=== PATIENT | female | born 1970 | race Caucasian/White ===

== ENCOUNTER → 2019-01-25 09:28 | Outpatient (CLI) | payer OTHER, MEDICAID, SELFPAY ==
--- NOTE | 2019-01-25 | DI.US.S_ITS ---
ULTRASOUND OF LEFT BREAST: 01/25/2019 CLINICAL: Palpable left breast lump. Comparison is made to exams dated: 01/25/2019 mammogram, 11/30/2017 mammogram, 07/22/2016 ultrasound, 07/18/2016 mammogram, and 08/18/2014 mammogram - [facility]. Color flow and real-time ultrasound of the left breast were performed on the areas of interest. Blum scale images of the real-time examination were reviewed. There is a 4.1 cm x 2.4 cm x 3.2 cm irregular simple cyst in the left breast at 12 o'clock middle depth. This irregular simple cyst is anechoic. This correlates as palpated. Additionally, there is a 3.5 cm x 2.8 cm x 4.6 cm irregular simple cyst in the left breast at 3 o'clock middle depth. This irregular simple cyst is anechoic. This correlates as palpated. There is 1.8 cm x 1.3 cm x 1.8 cm oval cyst in the left breast at 12 o'clock middle depth. This oval cyst displays internal echoes. This correlates as an incidental finding. IMPRESSION: PROBABLY BENIGN The 4.1 cm x 2.4 cm x 3.2 cm irregular simple cyst in the left breast at 12 o'clock middle depth is benign. The 3.5 cm x 2.8 cm x 4.6 cm irregular simple cyst in the left breast at 3 o'clock middle depth is benign. The 1.8 cm x 1.3 cm x 1.8 cm oval cyst in the left breast at 12 o'clock middle depth is consistent with a complicated cyst and is probably benign. A follow-up ultrasound in 6 months is recommended to demonstrate stability. This exam was interpreted at Station ID: [id number]. Electronically Signed By: Liseth arceo/:01/25/2019 12:16:03 letter sent: Followup Recommended Ultrasound BI-RADS: 3 Probably benign
--- NOTE | 2019-01-25 | DI.US.S_ITS ---
ULTRASOUND OF RIGHT BREAST: 01/25/2019 CLINICAL: Palpable right breast lump. Comparison is made to exams dated: 01/25/2019 mammogram, 12/05/2017 ultrasound, 11/30/2017 mammogram, 07/22/2016 ultrasound, 07/18/2016 mammogram, and 08/18/2014 mammogram - [facility]. Color flow ultrasound of the right breast was performed on the areas of interest. Blum scale images of the real-time examination were reviewed. There is an 8 cm x 3.8 cm x 4.4 cm irregular simple cyst in the right breast at 12 o'clock anterior depth. This irregular simple cyst is anechoic with posterior acoustic enhancement. This correlates as palpated. There also is a 3.9 cm x 2.4 cm x 3.3 cm irregular simple cyst in the right breast at 10 o'clock middle depth. This irregular simple cyst is anechoic with posterior acoustic enhancement. This correlates as palpated. IMPRESSION: BENIGN There is no sonographic evidence of malignancy. The 8 cm x 3.8 cm x 4.4 cm irregular simple cyst in the right breast at 12 o'clock anterior depth is benign. The 3.9 cm x 2.4 cm x 3.3 cm irregular simple cyst in the right breast at 10 o'clock middle depth is benign. A 1 year screening mammogram is recommended. This exam was interpreted at Station ID: [id number]. Electronically Signed By: Liseth arceo/:01/25/2019 12:37:15 letter sent: Normal Exam Ultrasound BI-RADS: 2 Benign
--- NOTE | 2019-01-25 | DI.MG.S_ITS ---
BILATERAL DIGITAL DIAGNOSTIC MAMMOGRAM 3D/2D: 01/25/2019 CLINICAL: Bilateral breast masses. Comparison is made to exams dated: 11/30/2017 mammogram, 07/18/2016 mammogram, and 08/18/2014 mammogram - [facility]. The tissue of both breasts is extremely dense, which lowers the sensitivity of mammography. There are multiple round high density masses in both breasts which are similar in appearance to the comparison mammogram dated 07/18/16. Some of these correspond as palpated bilaterally. No significant masses, calcifications, or other findings are seen in either breast. IMPRESSION: INCOMPLETE: NEEDS ADDITIONAL IMAGING EVALUATION A targeted ultrasound of the bilateral breasts is recommended and will be performed immediately following this exam. This exam was interpreted at Station ID: [id number]. NOTE: For mammograms, a report in lay terms will be sent to the patient. Approximately 15% of breast malignancies will not be visualized mammographically. In the management of a palpable breast mass, a negative mammogram must not discourage biopsy of a clinically suspicious lesion. Electronically Signed By: Liseth Grimes M.D. lk/:01/25/2019 10:28:37 ACR BI-RADS Category 0: Incomplete [id number]
== END ==
PROVIDERS: Visit Provider Family Medicine
DX: R92.8 Other abnormal and inconclusive findings on diagnostic imaging of breast (principal); N60.02 Solitary cyst of left breast; N60.01 Solitary cyst of right breast
CPT/HCPCS: 76642; 77066; G0279

== ENCOUNTER → 2019-07-26 08:37 | Outpatient (CLI) | payer OTHER, MEDICAID, SELFPAY ==
--- NOTE | 2019-07-26 | DI.US.S_ITS ---
LIMITED ULTRASOUND OF LEFT BREAST: 07/26/2019 CLINICAL: 6 month follow-up of the left breast. Comparison is made to exams dated: 01/25/2019 ultrasound, 01/25/2019 mammogram, 11/30/2017 mammogram, 07/22/2016 ultrasound, 07/18/2016 mammogram, and 08/18/2014 mammogram - [facility]. Color flow and real-time ultrasound of the left breast 11-12 o'clock region were performed. Blum scale images of the real-time examination were reviewed. There is a 1.7 x 1.2 x 1.7 cm oval circumscribed heterogenously hypoechoic cyst/mass with increased through transmission/posterior acoustic enhancement, and no vascularity on Doppler ultrasound located in the left breast at 11:30 position 4 cm from the nipple. This was previously described as being at 12 o'clock position on comparison exam of 01/25/19 and measured 1.8 x 1.3 x 1.8 cm at that time. Multiple adjacent simple-appearing cysts are again demonstrated. IMPRESSION: PROBABLY BENIGN Stable 1.7 x 1.2 x 1.7 cm oval circumscribed heterogenously hypoechoic cyst/mass in the left breast at 11:30 position 4 cm from the nipple is most consistent with a complicated cyst or fibroadenoma. A follow-up ultrasound in 6 months is recommended to demonstrate continued stability and to exclude malignancy. The patient will also be due for bilateral mammography at that time. The patient is advised to monitor her breasts and to return sooner for re-evaluation should she feel anything grow or change. This exam was interpreted at Station ID: [id number]. Electronically Signed By: Lincoln Gill M.D. ecl/:07/26/2019 09:43:33 letter sent: Followup Recommended Ultrasound BI-RADS: 3 Probably benign
== END ==
PROVIDERS: PCP Family Medicine; Visit Provider Family Medicine
DX: R92.8 Other abnormal and inconclusive findings on diagnostic imaging of breast (principal); N63.22 Unspecified lump in the left breast, upper inner quadrant
CPT/HCPCS: 76642

== ENCOUNTER 2019-09-22 07:10 | Emergency (ER) | payer OTHER, MEDICAID, SELFPAY ==
[2019-09-22 07:21] VITALS: BP 133/88; PULSE 125; RESP 20; TEMP 37.3; O2SAT 93; BMI 29.7
[2019-09-22] MEDS: ALBUTEROL/IPRATROPIUM 3 ML AMPUL INH (07:27)
--- NOTE | 2019-09-22 07:31 | DI.RAD.S_ITS ---
PROCEDURE: XR CHEST 2V INDICATIONS: cough, sob TECHNIQUE: 2 views of the chest were acquired. COMPARISON: None. FINDINGS: Surgical changes and devices: None. Lungs and pleura: Lungs are clear. No pleural effusions or pneumothorax. Mediastinum: Mediastinal contours are normal. Heart size is normal. Bones and chest wall: No suspicious bony abnormalities. Soft tissues appear unremarkable. IMPRESSION: Normal for age, source of current cough symptoms is not seen. Dictated by: Obed Alonzo M.D. on 09/22/2019 at 8:06 Approved by: Obed Alonzo M.D. on 09/22/2019 at 8:06
--- NOTE | 2019-09-22 07:35 | ED_ITS ---
HPI - URI/Sore Throat General Chief Complaint: Upper Respiratory Symptoms Stated Complaint: hard time breathing/cough has asthma fever Time Seen by Provider: 09/22/19 07:16 Source: patient Mode of arrival: Ambulatory Limitations: no limitations History of Present Illness HPI Narrative: Patient is a 48-year-old female with history of asthma presenting with cough and shortness of breath. She says she started with upper respiratory nasal sore throat and head pressure. She says yesterday it moved into her lungs. Last night she was coughing so hard and felt like her chest was tight. She did use her albuterol inhaler at home she didn't get much relief for sleep. She now has currently getting albuterol nebulize treatment. She denies any productive cough she does still feel like her chest gets tight. MD Complaint: fever and cough Relieving factors: nothing Related Data Home Medications Medication Instructions Recorded Confirmed albuterol sulfate 90 mcg/actuation 1 puff INHALATION Q6H PRN 10/15/18 10/15/18 aerosol inhaler fluticasone propionate 110 1 puff INHALATION BID 10/15/18 10/15/18 mcg/actuation HFA aerosol inhaler Previous Rx's Medication Instructions Recorded prednisone 50 mg PO DAILY #5 tab 09/22/19 Allergies Allergy/AdvReac Type Severity Reaction Status Date / Time erythromycin base Allergy Mild Verified 09/22/19 07:21 [ERYTHROMYCIN BASE] oseltamivir [From Tamiflu] Allergy Verified 09/22/19 07:21 Review of Systems Review of Systems Narrative: GENERAL: Denies chills, fatigue, malaise, fever, sweats, travel HEENT: Denies sinus pain, ear pain, sore throat, difficulty swallowing, neck pain RESPIRATORY: See HPI CARDIOVASCULAR: Denies chest pain, palpitations, orthopnea, edema GASTROINTESTINAL: Denies nausea, vomiting, abdominal pain, diarrhea, constipation, melena. : Denies dysuria, frequency, incontinence, hematuria, urinary retention, flank pain. MUSCULOSKELETAL: Denies weakness, joint pain, or bony pain SKIN: No rash, no erythema, no pruritus NEUROLOGIC: Denies weakness, dizziness, headache, numbness, change in speech, confusion PSYCHIATRIC: No concerning psychosocial issues. 12 point review of systems is negative except for those stated above and HPI Patient History Medical History Asthma (Acute) Social History Smoking Status: Never smoker Smoking Status: Never smoker Exam Initial Vital Signs Initial Vital Signs: Vital Signs Temperature 99.1 F 09/22/19 07:21 Pulse Rate 125 H 09/22/19 07:21 Respiratory Rate 20 09/22/19 07:21 Blood Pressure 133/88 09/22/19 07:21 Pulse Oximetry 93 09/22/19 07:21 GENERAL: Alert female no acute distress HEENT: Head atraumatic,EOMI, pupils reactive, face symmetric, moist mucous membranes CARDIOVASCULAR: Regular rate and rhythm without murmurs, rubs or gallops. RESPIRATORY: Breath sounds equal bilaterally, no wheezes rales or rhonchi. ABDOMEN: Soft, nontender. Normoactive bowel sounds all 4 quadrants. No guarding or rebound. EXTREMITIES: Normal range of motion, no clubbing or edema. Neurovascularly intact NEUROLOGICAL: Alert and oriented x4.Normal gait and speech. Cranial nerves II through XII grossly intact. SKIN: Warm, dry, no laceration, no petechiae, no rashes or lesions. Course Orders Ordered: ED Orders 09/22/19 07:18 Influenza A & B (PCR) Stat 09/22/19 07:31 XR chest 2V Stat Discontinued Medications Albuterol (Ventolin) 2.5 mg INH NOW ONE Stop: 09/22/19 08:39 Last Admin: 09/22/19 08:41 Dose: 2.5 mg Documented by: MERRICK Albuterol/Ipratropium (Duoneb) 3 ml INH NOW ONE Stop: 09/22/19 07:26 Last Admin: 09/22/19 07:27 Dose: 3 ml Documented by: ESTHER Vital Signs Vital signs: Vital Signs - 8 hr 09/22/19 07:21 09/22/19 07:38 09/22/19 08:41 Temperature 99.1 F Pulse Rate 125 H 122 H Respiratory Rate 20 18 16 Blood Pressure 133/88 Pulse Oximetry 93 97 98 09/22/19 09:02 Temperature Pulse Rate 120 H Respiratory Rate 16 Blood Pressure 127/78 Pulse Oximetry 94 MDM - URI/Sore Throat Lab Data Attestation: I reviewed the patient's lab results. Labs: Lab Results 09/22/19 Range/Units 07:18 Influenza A (RT-PCR) Flu a negative (NEGATIVE) Influenza B (RT-PCR) Flu b negative (NEGATIVE) Imaging Data Chest x-ray: Attestation: I personally reviewed and interpreted this imaging study as follows: My impression: no acute process Radiologist's impression: Result in pacs: Normal for age source of concurrent cough symptom is not seen MDM Narrative Medical decision making narrative: SYMPTOMS CONSISTENT WITH UPPER RESPIRATORY INFECTION. X-ray does not show any pneumonia influenza is negative. Will start her on steroids to help with asthma exacerbation as well. She has not had to use a spacer by respiratory. Given steroids Discharge Plan Departure Patient Disposition: Home Clinical Impression: Upper respiratory infection Qualifiers: URI type: unspecified viral URI Qualified Code(s): J06.9 - Acute upper respiratory infection, unspecified Asthma exacerbation Qualifiers: Asthma severity: mild Asthma persistence: persistent Qualified Code(s): J45.31 - Mild persistent asthma with (acute) exacerbation Discharge Date/Time: 09/22/19 09:03 Activity Restrictions/Additional Instructions: *You have been diagnosed with upper respiratory infection, asthma exacerbation *What to do: At this time no need for antibiotics, increase fluid intake fever control *Continue to take medications as directed Prednisone 50 mg once a day for 5 days--> SENT TO [facility] [place] Albuterol 1-2 puffs every 4 hours if needed for chest tightness wheezing or sebas rtness of breath *Follow up with your primary care provider in 2-3 days *Return to ER if you should have increasing shortness of breath, chest pain fever not controlled or any new, worsening or concerning symptoms Prescriptions: New prednisone 50 mg tablet 50 mg PO DAILY Qty: 5 RF: 0 No Action albuterol sulfate [Proventil HFA] 90 mcg/actuation HFA aerosol inhaler 1 puff INHALATION Q6H PRNRF: 0 fluticasone propionate [Flovent HFA] 110 mcg/actuation HFA aerosol inhaler 1 puff INHALATION BID RF: 0 Referrals: Josephine Girard MD [Primary Care Provider] -
[2019-09-22 07:38] VITALS: RESP 18; O2SAT 97
[2019-09-22 08:23] LABS: Influenza A - CEPHEID Flu A NEGATIVE (NEGATIVE); Influenza B - CEPHEID Flu B NEGATIVE (NEGATIVE)
[2019-09-22 08:41] VITALS: PULSE 122; RESP 16; O2SAT 98
[2019-09-22] MEDS: ALBUTEROL 2.5 MG/3 ML NEB (ADULT) INH (08:41)
[2019-09-22 09:02] VITALS: BP 127/78; PULSE 120; RESP 16; O2SAT 94
== END 2019-09-22 09:03 | disposition home or self-care (01) ==
PROVIDERS: Emergency Provider Emergency Medicine; PCP Family Medicine
DX: J06.9 Acute upper respiratory infection, unspecified (principal); J45.31 Mild persistent asthma with (acute) exacerbation
CPT/HCPCS: 71046; 87502; 94150; 94640; 99281; 99283; J7613

== ENCOUNTER → 2020-06-12 08:49 | Outpatient (CLI) | payer OTHER, MEDICAID, SELFPAY ==
--- NOTE | 2020-06-12 09:01 | DI.MG.S_ITS ---
Patient Name: KERON WARE date: 1970 Sex: F Attending Physician: Shaji Indications: Date: 06/12/2020 08:52 At the request of: ARCENIO XIONG Procedure: MM diagnostic mammo BI BILATERAL DIGITAL DIAGNOSTIC MAMMOGRAM 3D/2D SHORT-TERM FOLLOW-UP: 06/12/2020 CLINICAL: Patient returns for a 6 month follow up of the left breast, due for bilateral exam. Comparison is made to exams dated: 01/25/2019 mammogram, 11/30/2017 mammogram, and 07/18/2016 mammogram - [facility]. The tissue of both breasts is extremely dense, which lowers the sensitivity of mammography. There are masses in both breasts that are not significantly changed. No significant masses, calcifications, or other findings are seen in either breast. IMPRESSION: INCOMPLETE: NEEDS ADDITIONAL IMAGING EVALUATION A targeted ultrasound is recommended for follow up, and will be performed immediately following this exam. This exam was interpreted at Station ID: [id number]. NOTE: For mammograms, a report in lay terms will be sent to the patient. Approximately 15% of breast malignancies will not be visualized mammographically. In the management of a palpable breast mass, a negative mammogram must not discourage biopsy of a clinically suspicious lesion. Electronically Signed By: Musa Buchanan M.D. ar/:06/17/2020 10:14:41 ACR BI-RADS Category 0: Incomplete 3340F
--- NOTE | 2020-06-12 10:36 | DI.US.S_ITS ---
Patient Name: KERON WARE date: 1970 Sex: F Attending Physician: Shjai Indications: Date: 06/12/2020 11:15 At the request of: ARCENIO XIONG Procedure: US breast RT limited LIMITED ULTRASOUND OF RIGHT BREAST: 06/12/2020 CLINICAL: 1 year follow-up of cysts rt breast . Comparison is made to exams dated: 06/12/2020 mammogram, 01/25/2019 ultrasound, and 01/25/2019 mammogram - [facility]. Ultrasound of the right breast 10 o'clock, 12 o'clock, and retroareolar regions was performed. There are benign simple cysts in the right breast. No significant abnormalities were seen sonographically in the right breast. IMPRESSION: BENIGN There is no sonographic evidence of malignancy. This exam was interpreted at Station ID: [id number]. Electronically Signed By: Musa flores/rema:06/12/2020 12:12:08 Ultrasound BI-RADS: 2 Benign
--- NOTE | 2020-06-12 10:42 | DI.US.S_ITS ---
Patient Name: KERON WARE date: 1970 Sex: F Attending Physician: Shaji Indications: Date: 06/12/2020 11:19 At the request of: ARCENIO XIONG Procedure: US breast LT limited LIMITED ULTRASOUND OF LEFT BREAST: 06/12/2020 CLINICAL: 6 month follow-up of cysts. Comparison is made to exams dated: 06/12/2020 ultrasound, 06/12/2020 mammogram, 07/26/2019 ultrasound, 01/25/2019 ultrasound, and 01/25/2019 ultrasound - [facility]. Ultrasound of the left breast 10-12 o'clock region was performed. There are benign appearing cysts in the left breast. There is a 0.9 cm x 0.8 cm x 0.9 cm irregular mass with an indistinct margin in the left breast at 10 o'clock anterior depth 3 cm from the nipple. This irregular mass is of mixed echogenicity with posterior acoustic shadowing. This correlates as an incidental finding. There also is a benign 1.5 cm x 0.9 cm oval cyst in the left breast at 12 o'clock middle depth. This oval cyst displays internal echoes. This abnormality is decreased in size and less prominent and correlates with ultrasound findings. IMPRESSION: SUSPICIOUS OF MALIGNANCY The 0.9 cm x 0.8 cm x 0.9 cm irregular mass in the left breast at 10 o'clock anterior depth is at a moderate suspicion for malignancy. An ultrasound guided biopsy is recommended. The findings and recommendations were discussed with the patient in person by Dr. Brooks at the time of the exam. The 1.5 cm x 0.9 cm oval cyst in the left breast at 12 o'clock middle depth is benign. This exam was interpreted at Station ID: [id number]. Electronically Signed By: Musa flores/rema:06/12/2020 13:33:54 letter sent: Biopsy Required Ultrasound BI-RADS: 4b Moderate suspicion of malignancy Continued Report - Page 2 of 2 Patient Name: KERON WARE date: 1970 Sex: F Attending Physician: Shaji Indications: Date: 06/12/2020 11:19 At the request of: ARCENIO XIONG Procedure: US breast LT limited
== END ==
PROVIDERS: PCP Family Medicine; Referring Provider Family Medicine; Visit Provider Family Medicine
DX: R92.8 Other abnormal and inconclusive findings on diagnostic imaging of breast (principal); N63.22 Unspecified lump in the left breast, upper inner quadrant; N60.02 Solitary cyst of left breast; N60.01 Solitary cyst of right breast
CPT/HCPCS: 76642; 77066; G0279

== ENCOUNTER → 2020-06-29 07:45 | Outpatient (CLI) | payer OTHER, MEDICAID, SELFPAY ==
--- NOTE | 2020-06-29 | DI.US.S_ITS ---
ULTRASOUND GUIDED BIOPSY LEFT BREAST USING VACUUM DEVICE WITH MARKING DEVICE INSERTED: 06/29/2020 CLINICAL: Left breast mass. PATIENT CONSENT: Risks (minor bleeding, infection, vasovagal reaction and repeat procedure), benefits and alternatives were explained to the patient and written informed consent was obtained. Correlation is made to exams dated: 06/12/2020 ultrasound, 06/12/2020 mammogram, 07/26/2019 ultrasound, 01/25/2019 ultrasound, 01/25/2019 mammogram, and 12/05/2017 [facility]. An ultrasound guided biopsy using real-time ultrasound was performed for the irregular shaped mass located in the left breast at 10 o'clock posterior depth. The skin was prepped in the usual manner. Local anesthetic was administered to the access site. A small incision was made in the breast. The abnormality was approached from the lateral aspect. A biopsy needle was placed adjacent to the abnormality under ultrasound guidance. Once the needle was documented to be in the correct location, five specimens were obtained using the Mammotome biopsy system. A clip was inserted into the biopsy cavity. The specimens were sent to the laboratory for pathological analysis. IMPRESSION: ULTRASOUND GUIDED BIOPSY BENIGN Ultrasound guided biopsy of the mass in the left breast at 10 o'clock posterior depth was successful. Pathology indicates benign fibrocystic changes (FC). Pathology results are concordant with imaging findings. Return to annual mammogram screening schedule is recommended. This exam was interpreted at Station ID: [id number]. Edward miles,marielos/:07/06/2020 14:56:00
--- NOTE | 2020-06-29 | DI.MG.S_ITS ---
UNILATERAL LEFT DIGITAL DIAGNOSTIC MAMMOGRAM POST-NEEDLE BIOPSY: 06/29/2020 CLINICAL: Left breast mass. Comparison is made to exams dated: 06/12/2020 ultrasound, 06/12/2020 mammogram, 01/25/2019 ultrasound, and 01/25/2019 mammogram - [facility]. The tissue of left breast is extremely dense, which lowers the sensitivity of mammography. There is a marker clip in the appropriate position in the left breast at 10 o'clock middle depth. This marker clip placement is at the biopsy site. IMPRESSION: POST PROCEDURE MAMMOGRAM FOR MARKER PLACEMENT There was a successful marker clip placement in the left breast middle depth. This exam was interpreted at Station ID: [id number]. NOTE: For mammograms, a report in lay terms will be sent to the patient. Approximately 15% of breast malignancies will not be visualized mammographically. In the management of a palpable breast mass, a negative mammogram must not discourage biopsy of a clinically suspicious lesion. Electronically Signed By: Edward miles/rema:06/29/2020 12:32:56 ACR BI-RADS Category Post-procedure mammogram for marker placement
--- NOTE | 2020-06-29 | PATH_ITS ---
[facility] Accession Number: [id number] . 01 Material submitted: . breast - LEFT BREAST MASS 10:00 3CMFN . 02 Diagnosis: Left Breast Mass, 10 o'clock, 3 cm FN, Needle Core Biopsies: Dense fibrous breast parenchyma with ectatic, cystically dilated ducts, consistent with fibrocystic changes. A few microcalcifications associated with benign breast parenchyma. Negative for atypical hyperplasia, in situ or invasive carcinoma. [facility] 07/01/2020 1540 Local . 02 Comment: As part of routine quality control scientist, Dr. Gonzales has reviewed this case and agrees with the diagnosis above. . 02 Electronically signed: . Ant Holt MD, PhD, Pathologist NPI- [id number] . 01 Gross description: . Received one formalin-filled container, labeled with the patient's name and designated left breast mass 10 o'clock 3 cm FN. The specimen is received with a plastic filter in container, sample loose in container and consists of three yellow-reyna portions of soft tissue which range in size from 0.2 x 0.2 x 0.1 cm to 1.0 x 0.2 x 0.2 cm. The specimen is entirely submitted in one cassette. No collection date or time per container. Possible collection date and time per requisition: 06/29/20 at 0903. Total fixation time: Approximately 17 hours. ([id number]) /FRR 06/30/2020 0218 Local . 02 Pathologist provided ICD-10: N63.22, N60.12 . 02 CPT . 090264 Performed at: [address] [facility], [place], [place] [id number] MD Hood Bill MD Phone: [phone] Performed at: 02 [facility] [address] [place] [id number] MD Monica Gonzales MD Phone: [phone]
== END ==
PROVIDERS: PCP Family Medicine; Referring Provider Family Medicine; Visit Provider Family Medicine
DX: N60.12 Diffuse cystic mastopathy of left breast (principal); N60.42 Mammary duct ectasia of left breast
CPT/HCPCS: 19083; 77065

== ENCOUNTER → 2025-09-22 17:29 | Outpatient (CLI) | payer BC, SELFPAY ==
--- NOTE | 2025-09-22 17:34 | DI.RAD.S_ITS ---
PROCEDURE: XR TIBIA FIBULA LT 2V INDICATIONS: PAIN TECHNIQUE: 2 views of the tibia and fibula were acquired. COMPARISON: None. FINDINGS: Bones: No fractures or dislocations. No suspicious bony lesions. Soft tissues: No suspicious soft tissue calcifications or masses. IMPRESSION: No acute bony abnormality. Dictated by: Fredo Fritz M.D. on 09/22/2025 at 21:05 Approved by: Fredo Fritz M.D. on 09/22/2025 at 21:05
== END ==
LOC: RAD 17:31
PROVIDERS: PCP Family Medicine; Referring Provider Internal Medicine; Visit Provider Internal Medicine
DX: S89.92XA Unspecified injury of left lower leg, initial encounter (principal); X58.XXXA Exposure to other specified factors, initial encounter
CPT/HCPCS: 73590